=== PATIENT | male | born 1980 | race Caucasian/White ===

== ENCOUNTER 2019-10-23 19:41 | Emergency (ER) | payer BC ==
[~2019-10-23] VITALS: Ht 188 cm; Wt 142.7 kg
[2019-10-23 19:50] VITALS: BP 160/94
[2019-10-23] MEDS ORDERED: PREDNISONE20 MG PO (21:23)
[2019-10-23 21:45] VITALS: PULSE 62; TEMP 97.6
== END 2019-10-23 21:45 | disposition home or self-care (01) ==
LOC: COL.ER 19:41
DX: T78.1XXA Other adverse food reactions, not elsewhere classified, initial encounter (principal); K21.9 Gastro-esophageal reflux disease without esophagitis; G47.419 Narcolepsy without cataplexy; Z87.891 Personal history of nicotine dependence
CPT/HCPCS: J7512

== ENCOUNTER → 2020-01-07 | Outpatient (CLI) | payer BC ==
[~2020-01-07] MED LIST: PREDNISONE20 MG PO
== END ==
LOC: COL.RAD 13:22
DX: N26.1 Atrophy of kidney (terminal) (principal); N13.30 Unspecified hydronephrosis; K76.0 Fatty (change of) liver, not elsewhere classified
CPT/HCPCS: Q9967